=== PATIENT | male | born 1970 | race African-American/Black ===

== ENCOUNTER 2021-12-01 10:56 | Emergency (ER) | payer SELFPAY ==
[~2021-12-01] VITALS: Ht 177.8 cm; Wt 83.9 kg
[2021-12-01 13:30] VITALS: BP 160/101
== END 2021-12-01 13:35 | disposition home or self-care (01) ==
LOC: ER 11:00
DX: R10.31 Right lower quadrant pain (principal); K40.90 Unilateral inguinal hernia, without obstruction or gangrene, not specified as recurrent; N43.3 Hydrocele, unspecified; I10 Essential (primary) hypertension; F17.210 Nicotine dependence, cigarettes, uncomplicated
CPT/HCPCS: 99282